=== PATIENT | female | born 1945 | race Caucasian/White ===

== ENCOUNTER 2016-07-21 10:36 | Emergency (ER) | payer OTHER, MEDICARE ==
[~2016-07-21 10:36] MED LIST: ACCUNEB INH; ALLEGRA180 PO; ALLERGY SHOTS; C5; HYZAAR1 TAB PO; LYRICA75 PO; MICARDIS HC1 PO; MONODOX100 MG PO; MULTIPLE VIT PO; NABUMETONE750 MG PO; P10 PO; PCET PO; PROTONIX PO; PROVHFA INH; SINGULAIR1 PO; SPIRO25 PO; SYMBICORT 160/41 INH INH; T PO; TESSALON200 MG PO; XYZAL5 MG PO
[2016-07-21 11:13] LABS: BASOPHILS 0.3 %; BASOPHILS ABSOLUTE 0.01 10/3/uL (0.0-0.16); EOSINOPHILS 0.3 %; EOSINOPHILS ABSOLUTE 0.01 10/3/uL (0.0-0.53); HEMATOCRIT 38.8 % (36.0-48.0); HEMOGLOBIN 13.4 g/dL (12.0-16.0); LYMPHOCYTES 19.7 %; LYMPHOCYTES ABSOLUTE 0.63 10/3/uL (0.67-4.30); MEAN CORPUS HGB CONC 34.5 g/dL (32.0-36.0); MEAN CORPUSCULAR HEMOGLOB 31.9 pg (26.0-34.0); MEAN CORPUSCULAR VOLUME 92.4 fL (80-100); MEAN PLATELET VOLUME 10.2 fL (9.2-13.0); MONOCYTES 12.5 %; NEUTROPHILS 67.2 %; NEUTROPHILS ABSOLUTE 2.14 10/3/uL (2.02-8.40); RBC DISTRIBUTION WIDTH 13.1 % (12.0-16.0)
[2016-07-21 11:15] LABS: ER CBC TAT 0 Hrs 08 Mins; MANUAL DIFF NO %; PLATELET COUNT 121 10/3/uL (150-400); WHITE BLOOD CELLS 3.2 10/3/uL (4.5-10.5)
[2016-07-21 11:28] LABS: ALBUMIN 3.3 G/DL (3.5-5.0); ALKALINE PHOSPHATASE 114 U/L (45-117); BUN (BLOOD UREA NITROGEN) 23 MG/DL (6-23); CALCIUM, SERUM 8.4 MG/DL (8.5-10.4); CHLORIDE, SERUM 100 MMOL/L (96-112); CO2 (CARBON DIOXIDE) 27 MMOL/L (24-34); CREATININE 1.44 MG/DL (0.55-1.02); GFR AFRICAN AMERICAN 43 ML/MIN (>=60); GFR NON AFRICAN AMERICAN 37 ML/MIN (>=60); GLUCOSE, SERUM 109 MG/DL (60-99); POTASSIUM, SERUM 3.9 MMOL/L (3.5-5.3); SGOT(AST) 26 U/L (5-40); SGPT(ALT) 24 U/L (5-65); TOTAL BILIRUBIN 0.8 MG/DL (0-1.2); TOTAL PROTEIN 6.7 G/DL (6.0-8.5)
[2016-07-21 11:34] LABS: GLOBULIN 3.4 G/DL (2.5-4.1); SODIUM, SERUM 138 MMOL/L (135-148)
== END 2016-07-21 13:32 | disposition home or self-care (01) ==
LOC: ER 10:36
PROVIDERS: Hospitalist
DX: B34.9 Viral infection, unspecified (principal); N17.9 Acute kidney failure, unspecified; J45.901 Unspecified asthma with (acute) exacerbation; I10 Essential (primary) hypertension; Z90.710 Acquired absence of both cervix and uterus; Z88.0 Allergy status to penicillin; Z88.1 Allergy status to other antibiotic agents; Z79.52 Long term (current) use of systemic steroids; Z79.899 Other long term (current) drug therapy
CPT/HCPCS: 71010; 74176; 80053; 85025; 93005; 96374; 96375; 99285; A9270-GY; J2405; J2930